=== PATIENT | female | born 1970 | race Two or more races ===

== ENCOUNTER 2021-02-15 16:23 | Inpatient (IN) | payer OTHER ==
[2021-02-15] MEDS ORDERED: HEPARIN SODIUM 1,000 UN/ML (10ML VL) IV ONE (16:29)
[2021-02-15] MEDS ORDERED: SODIUM CHLORIDE 0.9% 1,000 ML IV STA (16:29)
[2021-02-15] MEDS ORDERED: HEPARIN SOD,PORK IN 0.45% NACL 25,000 UNIT in 0.45% NACL 1 250ML.BAG IV SCH (16:30)
--- NOTE | 2021-02-15 16:49 | ED ---
Arrhythmia/Palpitations HPI - General Stated Complaint: afib Time Seen by Provider: 02/15/21 16:28 Source: patient, EMS Mode of arrival: EMS Limitations: no limitations - History of Present Illness Initial Comments: Destiny is a 50yo F who presents to our hospital as a transfer from [facility]. Patient presented there with complaints of weakness and palpitations. Patient was found to be in new onset A. fib with RVR. Patient had no chest pain. She was started on Cardizem and rate was well-controlled. Patient is not on any anticoagulant medication she does take daily aspirin. Patient was not started on heparin prior to arrival in the emergency department here. - Related Data Home Medications Medication Instructions Recorded Confirmed ALPRAZolam [Xanax] 0.25 mg PO BID PRN 02/15/21 02/15/21 Adalimumab [Humira(Cf) Pen] 40 mg SQ Q14D 02/15/21 02/15/21 Aspirin EC [Ecotrin Low Dose] 81 mg PO DAILY 02/15/21 02/15/21 Cholecalciferol (Vitamin D3) 125 mcg PO DAILY 02/15/21 02/15/21 [Vitamin D3 (125 MCG = 5,000 IU)] DULoxetine HCL [Cymbalta] 30 mg PO HS 02/15/21 02/15/21 Gabapentin 600 mg PO HS 02/15/21 02/15/21 Lisinopril-Hctz 20-12.5 mg 1 tab PO DAILY 02/15/21 02/15/21 [Zestoretic 20-12.5] Mv-Min/Folic/Vit K/Lut/[id number] 1 tab PO DAILY 02/15/21 02/15/21 [Alive Women's 50 Plus Tablet] predniSONE 5 mg PO DAILY 02/15/21 02/15/21 Allergies Allergy/AdvReac Type Severity Reaction Status Date / Time No Known Allergies Allergy Verified 02/15/21 17:54 Review of Systems ROS Statement: Those systems with pertinent positive or pertinent negative responses have been documented in the HPI. ROS Other: All systems not noted in ROS Statement are negative. Past Medical History Past Medical History: Atrial Fibrillation, Hypertension, Rheumatoid Arthritis (RA) History of Any Multi-Drug Resistant Organisms: None Reported Past Surgical History: Appendectomy, Bowel Resection, Tonsillectomy Additional Past Surgical History / Comment(s): left breast cyst Past Psychological History: No Psychological Hx Reported Smoking Status: Current every day smoker Past Alcohol Use History: Occasional Past Drug Use History: None Reported - Past Family History Father Family Medical History: Unable to Obtain Mother Family Medical History: Diabetes Mellitus General Exam - General Exam Comments Initial Comments: Physical Exam GENERAL: Patient is well-developed and well-nourished. Patient is nontoxic and well-hydrated and is in no distress. HENT: Normocephalic, Atraumatic. EYES: PERRL, EOMI PULMONARY: Unlabored respirations. CARDIOVASCULAR: Irregularly irregular ABDOMEN: Non-distended SKIN: No rashes or bruising : Deferred NEUROLOGIC: Alert and oriented Normal speech Normal gait MUSCULOSKELETAL: Moving all extremities with no apparent injury PSYCHIATRIC: No SI/HI Limitations: no limitations Course Vital Signs 02/15/21 02/15/21 02/15/21 16:25 18:15 18:25 Temperature 97.9 F 98.2 F Pulse Rate 103 H 112 H Pulse Rate [ [address] Pressman ] Respiratory 18 18 18 Rate Blood Pressure 131/70 113/100 Blood Pressure 102/73 [Left Arm] O2 Sat by Pulse 96 93 L 93 L Oximetry EKG Findings - EKG Comments: EKG Findings:: EKG was obtained due to tachycardia, EKG was obtained at 1639 rate is 97 rhythm is narrow complex irregularly irregular with no P waves before QRS this is consistent with an atrial fibrillation. There are no acute ST elevations or depressions there is no evidence of ischemia or infarction. Medical Decision Making - Medical Decision Making The patient was seen and evaluated [facility]'s medical record was reviewed History is obtained from the patient, patient has no contraindications to anticoagulation therefore heparin was ordered Cardizem was continued at a rate of 10, Cardizem was held briefly when the patient arrived she did ambulate to the restroom and her heart rate increased to the 140s. Upon resuming the Cardizem heart rate stabilized in the 90s. Patient care was discussed with who accepts the admission - Lab Data Result diagrams: 02/15/21 16:48 02/15/21 16:48 Lab Results 02/15/21 02/15/21 02/15/21 Range/Units 16:48 16:48 16:48 WBC 8.1 (3.8-10.6) k/uL RBC 4.10 (3.80-5.40) m/uL Hgb 13.4 (11.4-16.0) gm/dL Hct 39.5 (34.0-46.0) % MCV 96.2 (80.0-100.0) fL MCH 32.7 (25.0-35.0) pg MCHC 34.0 (31.0-37.0) g/dL RDW 13.9 (11.5-15.5) % Plt Count 242 (150-450) k/uL MPV 7.7 Neutrophils % 62 % Lymphocytes % 22 % Monocytes % 8 % Eosinophils % 4 % Basophils % 1 % Neutrophils # 5.0 (1.3-7.7) k/uL Lymphocytes # 1.8 (1.0-4.8) k/uL Monocytes # 0.7 (0-1.0) k/uL Eosinophils # 0.3 (0-0.7) k/uL Basophils # 0.1 (0-0.2) k/uL PT 10.7 (9.0-12.0) sec INR 1.0 (<1.2) APTT 22.5 (22.0-30.0) sec Sodium 134 L (137-145) mmol/L Potassium 4.2 (3.5-5.1) mmol/L Chloride 103 (98-107) mmol/L Carbon Dioxide 20 L (22-30) mmol/L Anion Gap 11 mmol/L BUN 9 (7-17) mg/dL Creatinine 0.67 (0.52-1.04) mg/dL Est GFR (CKD-EPI)AfAm >90 (>60 ml/min/1.73 sqM) Est GFR (CKD-EPI)NonAf >90 (>60 ml/min/1.73 sqM) Glucose 119 H (74-99) mg/dL Calcium 8.2 L (8.4-10.2) mg/dL Magnesium 1.6 (1.6-2.3) mg/dL Total Bilirubin 0.3 (0.2-1.3) mg/dL AST 50 H (14-36) U/L ALT 45 H (4-34) U/L Alkaline Phosphatase 72 (38-126) U/L Troponin I (0.000-0.034) ng/mL NT-Pro-B Natriuret Pep pg/mL Total Protein 6.5 (6.3-8.2) g/dL Albumin 3.2 L (3.5-5.0) g/dL 02/15/21 02/15/21 Range/Units 16:48 16:48 WBC (3.8-10.6) k/uL RBC (3.80-5.40) m/uL Hgb (11.4-16.0) gm/dL Hct (34.0-46.0) % MCV (80.0-100.0) fL MCH (25.0-35.0) pg MCHC (31.0-37.0) g/dL RDW (11.5-15.5) % Plt Count (150-450) k/uL MPV Neutrophils % % Lymphocytes % % Monocytes % % Eosinophils % % Basophils % % Neutrophils # (1.3-7.7) k/uL Lymphocytes # (1.0-4.8) k/uL Monocytes # (0-1.0) k/uL Eosinophils # (0-0.7) k/uL Basophils # (0-0.2) k/uL PT (9.0-12.0) sec INR (<1.2) APTT (22.0-30.0) sec Sodium (137-145) mmol/L Potassium (3.5-5.1) mmol/L Chloride (98-107) mmol/L Carbon Dioxide (22-30) mmol/L Anion Gap mmol/L BUN (7-17) mg/dL Creatinine (0.52-1.04) mg/dL Est GFR (CKD-EPI)AfAm (>60 ml/min/1.73 sqM) Est GFR (CKD-EPI)NonAf (>60 ml/min/1.73 sqM) Glucose (74-99) mg/dL Calcium (8.4-10.2) mg/dL Magnesium (1.6-2.3) mg/dL Total Bilirubin (0.2-1.3) mg/dL AST (14-36) U/L ALT (4-34) U/L Alkaline Phosphatase (38-126) U/L Troponin I <0.012 (0.000-0.034) ng/mL NT-Pro-B Natriuret Pep 361 pg/mL Total Protein (6.3-8.2) g/dL Albumin (3.5-5.0) g/dL Disposition Clinical Impression: New onset a-fib Disposition: ADMITTED IP TO THIS HOSP Condition: Stable Is patient prescribed a controlled substance at d/c from ED?: No
[2021-02-15 16:53] LABS: Basophils # (A) 0.1 k/uL (0-0.2); Basophils % (A) 1 %; Eosinophils # (A) 0.3 k/uL (0-0.7); Eosinophils % (A) 4 %; HCT 39.5 % (34.0-46.0); HGB 13.4 gm/dL (11.4-16.0); Lymphocytes # (A) 1.8 k/uL (1.0-4.8); Lymphocytes % (A) 22 %; MCH 32.7 pg (25.0-35.0); MCV 96.2 fL (80.0-100.0); Mean Platelet Volume 7.7; Monocytes # (A) 0.7 k/uL (0-1.0); Monocytes % (A) 8 %; Neutrophils % (A) 62 %; Platelet Count 242 k/uL (150-450); RDW 13.9 % (11.5-15.5); WBC 8.1 k/uL (3.8-10.6)
[2021-02-15 17:02] LABS: ALT 45 U/L (4-34); AST 50 U/L (14-36); African American GFR (CKD) >90 (>60 ml/min/1.73 sqM); Albumin 3.2 g/dL (3.5-5.0); Alkaline Phosphatase 72 U/L (38-126); Anion Gap 11 mmol/L; Blood Urea Nitrogen 9 mg/dL (7-17); Calcium 8.2 mg/dL (8.4-10.2); Carbon Dioxide 20 mmol/L (22-30); Chloride 103 mmol/L (98-107); Glucose 119 mg/dL (74-99); Magnesium 1.6 mg/dL (1.6-2.3); Non-African American GFR(CKD) >90 (>60 ml/min/1.73 sqM); Partial Thromboplastin Time 22.5 sec (22.0-30.0); Potassium 4.2 mmol/L (3.5-5.1); Prothrombin Time 10.7 sec (9.0-12.0); Sodium 134 mmol/L (137-145); Total Bilirubin 0.3 mg/dL (0.2-1.3); Total Protein 6.5 g/dL (6.3-8.2)
[2021-02-15] MEDS ORDERED: NITROGLYCERIN SL TABS 0.4 MG TAB SUBLINGUAL PRN (17:21)
[2021-02-15] MEDS: DILTIAZEM 125 MG in SODIUM CHLORIDE 0.9% 100 ML IV SCH (17:58)
[2021-02-15] MEDS ORDERED: NALOXONE 0.4 MG/ML 1 ML VIAL IV PRN (18:14)
[2021-02-15] MEDS ORDERED: ALPRAZolam 0.25 MG TAB PO PRN (18:14)
--- NOTE | 2021-02-15 18:32 | P.HPIM ---
History of Present Illness H&P Date: 02/15/21 Chief Complaint: Suzien 50-year-old woman with medical history of hypertension, hyperlipidemia, diabetes with diabetic nephropathy, anxiety, rheumatoid arthritis presented with palpitations. Patient says that she was in her usual state of health until yesterday when she did a lot of walking in the heat, exerting herself. However, she started to notice palpitations and the feeling of being unsettled. When she got home, she tried to take some Xanax to calm herself down, however, her heart rate still remained elevated and she still had palpitations, warranting her presentation to the emergency room. She was in [facility] where she was noted to be in atrial fibrillation with RVR which is new for her, and was provided Cardizem to bring her rates down, then transferred here for further management. Patient currently reports palpitations, anxiety. She denies fevers, chills, nausea, vomiting, chest pain, syncope, presyncope, cough, dyspnea, abdominal pain, gas patient, diarrhea, dysuria, dyschezia, numbness/weakness of extremity. In the ER, her heart rate ranges from 110-130, blood pressures are stable, 93% on 4 L nasal cannula. CBC was unremarkable. Chemistries show mild acidosis to bicarb of 20, elevated glucose to 119, mildly elevated LFTs, negative BNP, negative troponin. Chest x-ray is pending. Review of Systems All Systems reviewed and pertinent positives and negatives noted in HPI, all other symptoms are negative Past Medical History Past Medical History: Atrial Fibrillation, Hypertension, Rheumatoid Arthritis (RA) History of Any Multi-Drug Resistant Organisms: None Reported Past Surgical History: Appendectomy, Bowel Resection, Tonsillectomy Additional Past Surgical History / Comment(s): left breast cyst Past Psychological History: No Psychological Hx Reported Smoking Status: Current every day smoker Past Alcohol Use History: Occasional Past Drug Use History: None Reported Medications and Allergies Home Medications Medication Instructions Recorded Confirmed Type ALPRAZolam [Xanax] 0.25 mg PO BID PRN 02/15/21 02/15/21 History Adalimumab [Humira(Cf) Pen] 40 mg SQ Q14D 02/15/21 02/15/21 History Aspirin EC [Ecotrin Low Dose] 81 mg PO DAILY 02/15/21 02/15/21 History Cholecalciferol (Vitamin D3) 125 mcg PO DAILY 02/15/21 02/15/21 History [Vitamin D3 (125 MCG = 5,000 IU)] DULoxetine HCL [Cymbalta] 30 mg PO HS 02/15/21 02/15/21 History Gabapentin 600 mg PO HS 02/15/21 02/15/21 History Lisinopril-Hctz 20-12.5 mg 1 tab PO DAILY 02/15/21 02/15/21 History [Zestoretic 20-12.5] Mv-Min/Folic/Vit K/Lut/[id number] 1 tab PO DAILY 02/15/21 02/15/21 History [Alive Women's 50 Plus Tablet] predniSONE 5 mg PO DAILY 02/15/21 02/15/21 History Allergies Allergy/AdvReac Type Severity Reaction Status Date / Time No Known Allergies Allergy Verified 02/15/21 17:54 Physical Exam Osteopathic Statement: *. No significant issues noted on an osteopathic structural exam other than those noted in the History and Physical/Consult. Vitals: Vital Signs Temp Pulse Resp BP Pulse Ox 02/15/21 18:15 112 H 18 113/100 93 L 02/15/21 16:25 97.9 F 103 H 18 131/70 96 Intake and Output 02/15/21 02/15/21 02/15/21 06:59 14:59 22:59 Other: Weight 122.47 kg Gen: awake, alert HEENT: normocephalic, atraumatic, good hearing acuity, moist mucous membranes Resp: good air exchange, breathing comfortably with no accessory muscle use, right lower lobe crackles, mild left lower lobe crackles CVS: good distal perfusion x 4, irregular rhythm, tachycardic, no murmurs GI: soft, NTTP, ND : no SPT, no CVAT, mcguire catheter not present MSK: no pitting edema, no clubbing Neuro: non-focal, moving all extremities Psych: cooperative, euthymic mood Results CBC & Chem 7: 02/15/21 16:48 02/15/21 16:48 Labs: Abnormal Lab Results - Last 24 Hours (Table) 02/15/21 Range/Units 16:48 Sodium 134 L (137-145) mmol/L Carbon Dioxide 20 L (22-30) mmol/L Glucose 119 H (74-99) mg/dL Calcium 8.2 L (8.4-10.2) mg/dL AST 50 H (14-36) U/L ALT 45 H (4-34) U/L Albumin 3.2 L (3.5-5.0) g/dL Assessment and Plan Assessment: Acute hypoxemic respiratory failure Paroxysmal atrial fibrillation with rapid ventricular response, new onset, CHADS-VASc score is 3 -Admit inpatient, telemetry -Oxygen when necessary -Cardiology consult -Echocardiogram pending -Chest x-ray pending -Cardizem drip -Metoprolol 25 twice a day -Heparin drip Hypertension Hyperlipidemia Diabetes type 2 Anxiety Rheumatoid arthritis -Home medications reviewed and reconciled -Home diabetes medications by mouth or held, low-dose sliding scale insulin -Continue Xanax -Continue lisinoprilHCTZ -Continue duloxetine, gabapentin Patient is a full code Patient is on therapeutic anticoagulation
[2021-02-15] MEDS: MAGNESIUM SULFATE-D5W PMX 1 GM in DEXTROSE/WATER 1 100ML.BAG IVPB SCH ×2 (19:14→20:44)
--- NOTE | 2021-02-15 19:27 | XR ---
EXAMINATION TYPE: XR chest 1V portable DATE OF EXAM: 02/15/2021 COMPARISON: NONE HISTORY: Atrial fibrillation. Hypoxemia. TECHNIQUE: Single view FINDINGS: Heart is normal. Lungs are clear of consolidation. There is no heart failure. There is coar se interstitial density in the lungs. There is no pleural effusion. Bony thorax is intact. IMPRESSION: Interstitial pulmonary infiltrates. This could be interstitial fibrosis or interstitial p neumonia.
[2021-02-15] MEDS: DULoxetine HCL 30 MG CAPSULE.DR PO SCH (20:43)
[2021-02-15] MEDS: GABAPENTIN 300 MG CAP PO SCH (20:43)
[2021-02-15] MEDS: METOPROLOL TARTRATE 25 MG TAB PO SCH (20:44)
[2021-02-15] MEDS ORDERED: LORazepam 2 MG/ML INJ IV PRN ×3 (21:50)
--- NOTE | 2021-02-15 22:15 | US ---
EXAMINATION TYPE: US venous doppler duplex LE BI DATE OF EXAM: 02/15/2021 9:37 PM COMPARISON: NONE CLINICAL HISTORY: complaint of calf pain. SIDE PERFORMED: Bilateral TECHNIQUE: The lower extremity deep venous system is examined utilizing real time linear array sonog gudelia with graded compression, doppler sonography and color-flow sonography. VESSELS IMAGED: Common Femoral Vein Deep Femoral Vein Greater Saphenous Vein * Femoral Vein Popliteal Vein Small Saphenous Vein * Proximal Calf Veins (* superficial vessels) Right Leg: Negative for DVT Left Leg: Negative for DVT IMPRESSION: No evidence of deep vein thrombosis in both legs.
[2021-02-16] MEDS ORDERED: HEPARIN SODIUM 1,000 UN/ML (10ML VL) IV PRN (00:11)
[2021-02-16] MEDS: DILTIAZEM 125 MG in SODIUM CHLORIDE 0.9% 100 ML IV SCH (02:56)
[2021-02-16] MEDS: ACETAMINOPHEN TAB 325 MG TAB PO PRN ×3 (02:58→23:00)
[2021-02-16 05:21] LABS: Glucose,Whole Blood 151 mg/dL (75-99)
[2021-02-16 06:09] LABS: Glucose,Whole Blood 142 mg/dL (75-99)
[2021-02-16] MEDS: INSULIN ASPART (NovoLOG) 100 UNIT/ML VIAL SQ SCH ×3 (06:29→16:58)
[2021-02-16 06:51] LABS: Basophils # (A) 0.1 k/uL (0-0.2); Basophils % (A) 1 %; Eosinophils # (A) 0.4 k/uL (0-0.7); Eosinophils % (A) 4 %; HCT 38.3 % (34.0-46.0); HGB 12.4 gm/dL (11.4-16.0); Lymphocytes # (A) 1.8 k/uL (1.0-4.8); Lymphocytes % (A) 20 %; MCH 32.4 pg (25.0-35.0); MCHC 32.5 g/dL (31.0-37.0); MCV 99.9 fL (80.0-100.0); Macrocytosis Slight; Mean Platelet Volume 8.2; Monocytes # (A) 0.6 k/uL (0-1.0); Monocytes % (A) 7 %; Neutrophils # (A) 5.8 k/uL (1.3-7.7); Neutrophils % (A) 65 %; Platelet Count 215 k/uL (150-450); RBC 3.83 m/uL (3.80-5.40); RDW 14.4 % (11.5-15.5); WBC 8.9 k/uL (3.8-10.6)
[2021-02-16 07:11] LABS: African American GFR (CKD) >90 (>60 ml/min/1.73 sqM); Anion Gap 7 mmol/L; Blood Urea Nitrogen 9 mg/dL (7-17); Calcium 8.7 mg/dL (8.4-10.2); Carbon Dioxide 26 mmol/L (22-30); Chloride 102 mmol/L (98-107); Glucose 145 mg/dL (74-99); Non-African American GFR(CKD) 89 (>60 ml/min/1.73 sqM); Potassium 4.8 mmol/L (3.5-5.1); Sodium 135 mmol/L (137-145)
--- NOTE | 2021-02-16 07:59 | P.CRDCN ---
History of Present Illness Consult date: 02/16/21 History of present illness: HISTORY OF PRESENT ILLNESS: This is a 50-year-old female with a past medical history significant for hypertension, nicotine dependence, and frequent alcohol use. Patient does not follow with a gas dispenser. We have been asked to see the patient in consultation for A. fib with RVR. Patient examined at the bedside. Patient states yesterday she was sleeping when she was awoken from her sleep with left shoulder pain and shortness of breath. She denied having any chest pain or pressure. She denied having any palpitations. She states that she overall was not feeling well so she called her neighbor who is a registered nurse who came over and advised the patient to go to the emergency room for further evaluation. The patient initially presented to [facility] and was found to be in A. fib with RVR. The patient denies any previous history of atrial fibrillation. The patient was started on a Cardizem drip there and subsequently converted to sinus mechanism. Patient remains in sinus rhythm this morning at the time of examination. She denies chest pain or pressure. She denies shortness of breath. She does report feeling slightly diaphoretic this morning and has a headache. Patient reports she is a daily smoker and smokes approximately 8 cigarettes a day. She also reports alcohol use 4-5 times a week with 4-5 vodka and cranberry drinks each time. She denies any illicit drug use. She denies having a stress test or cardiac catheterization in the past. EKG reveals A. fib with RVR Chest xray interstitial pulmonary infiltrates. This could be interstitial fibrosis or interstitial pneumonia. Lower extremity Doppler: Negative for DVT Laboratory data: WBC 8.9. Hemoglobin 12.4. Platelet count 215. Sodium 135. Potassium 4.8. BUN 9. Creatinine 0.77. Troponin negative 1. ProBNP 361. Current home cardiac medications include lisinoprilhydrochlorothiazide 2012.5 mg daily, aspirin 81 mg daily REVIEW OF SYSTEMS: At the time of my exam: CONSTITUTIONAL: Denies fever or chills. HEENT: Denies blurred vision, vision changes, or eye pain. Denies hemoptysis CARDIOVASCULAR: Denies chest pain. Denies orthopnea. Denies PND. Denies palpitations RESPIRATORY: Denies shortness of breath. GASTROINTESTINAL: Denies abdominal pain. Denies nausea or vomiting. HEMATOLOGIC: Denies bleeding disorders. GENITOURINARY: Denies any blood in urine. SKIN: Denies pruitis. Denies rash. PHYSICAL EXAM: VITAL SIGNS: Reviewed. GENERAL: Well-developed in no acute distress. HEENT: Head is normocephalic. Pupils are equal, round. Sclerae anicteric. Mucous membranes of the mouth are moist. Neck supple. No JVD or thyromegaly LUNGS: Respirations even and unlabored. Lungs essentially clear to auscultation bilaterally. HEART: Regular rate and rhythm. S1 and S2 heard. ABDOMEN: Soft. Nondistended. Nontender. EXTREMITIES: Normal range of motion. No clubbing or cyanosis. Peripheral pulses intact. No lower extremity edema NEUROLOGIC: Awake and alert. Oriented x 3. ASSESSMENT: New onset paroxysmal atrial fibrillation with RVR Hypertension Nicotine dependence Frequent alcohol use Morbid obesity: BMI 44.5 Anxiety PLAN: Obtain 2D echo to assess cardiac structure and function Continue home cardiac medications Continue metoprolol Continue IV heparin Case management consulted to verify insurance coverage for [employer] Check TSH Likely outpatient stress test Smoking cessation encouraged Abstinence from alcohol recommended Further recommendations pending patient course Nurse practitioner note has been reviewed by physician. Signing provider agrees with the documented findings, assessment, and plan of care. Past Medical History Past Medical History: Atrial Fibrillation, Hypertension, Rheumatoid Arthritis (RA) Additional Past Medical History / Comment(s): diverticulitis History of Any Multi-Drug Resistant Organisms: None Reported Past Surgical History: Appendectomy, Bowel Resection, Tonsillectomy Additional Past Surgical History / Comment(s): left breast cyst Past Anesthesia/Blood Transfusion Reactions: No Reported Reaction Past Psychological History: No Psychological Hx Reported Smoking Status: Current every day smoker Past Alcohol Use History: Occasional Past Drug Use History: None Reported - Past Family History Father Family Medical History: Unable to Obtain Mother Family Medical History: Diabetes Mellitus Medications and Allergies Home Medications Medication Instructions Recorded Confirmed Type ALPRAZolam [Xanax] 0.25 mg PO BID PRN 02/15/21 02/15/21 History Adalimumab [Humira(Cf) Pen] 40 mg SQ Q14D 02/15/21 02/15/21 History Aspirin EC [Ecotrin Low Dose] 81 mg PO DAILY 02/15/21 02/15/21 History Cholecalciferol (Vitamin D3) 125 mcg PO DAILY 02/15/21 02/15/21 History [Vitamin D3 (125 MCG = 5,000 IU)] DULoxetine HCL [Cymbalta] 30 mg PO HS 02/15/21 02/15/21 History Gabapentin 600 mg PO HS 02/15/21 02/15/21 History Lisinopril-Hctz 20-12.5 mg 1 tab PO DAILY 02/15/21 02/15/21 History [Zestoretic 20-12.5] Mv-Min/Folic/Vit K/Lut/[id number] 1 tab PO DAILY 02/15/21 02/15/21 History [Alive Women's 50 Plus Tablet] predniSONE 5 mg PO DAILY 02/15/21 02/15/21 History Allergies Allergy/AdvReac Type Severity Reaction Status Date / Time No Known Allergies Allergy Verified 02/15/21 17:54 Physical Exam Vitals: Vital Signs Temp Pulse Pulse Resp BP BP Pulse Ox 02/16/21 03:12 98.3 F 84 18 161/81 92 L 02/16/21 02:00 78 18 02/16/21 00:00 97.3 F L 78 18 114/64 93 L 02/15/21 20:00 97.8 F 72 18 116/60 92 L 02/15/21 18:25 98.2 F 78 18 102/73 93 L 02/15/21 18:15 112 H 18 113/100 93 L 02/15/21 16:25 97.9 F 103 H 18 131/70 96 Intake and Output 02/15/21 02/16/21 02/16/21 22:59 06:59 14:59 Intake Total 28.167 75.788 Balance 28.167 75.788 Intake: Intake, IV Titration 28.167 75.788 Amount Diltiazem 125 mg In 28.167 Sodium Chloride 0.9% 100 ml @ 10 MG/HR 10 mls/hr IV .[id number] TRISHA Rx#: [id number] Heparin Sod,Pork in 0.45% 75.788 NaCl 25,000 unit In 0.45 % NaCl 1 250ml.bag @ 8.16 UNITS/KG/HR 9.994 mls/hr IV .Q24H TRISHA Rx#: [id number] Other: Voiding Method Toilet Toilet # Voids 1 Weight 122.47 kg 129 kg Results 02/16/21 06:15 02/16/21 06:15 Cardiac Enzymes 02/15/21 02/15/21 Range/Units 16:48 16:48 AST 50 H (14-36) U/L Troponin I <0.012 (0.000-0.034) ng/mL Coagulation 02/15/21 02/15/21 02/16/21 Range/Units 16:48 23:20 06:15 PT 10.7 (9.0-12.0) sec APTT 22.5 24.6 29.9 (22.0-30.0) sec CBC 02/15/21 02/16/21 Range/Units 16:48 06:15 WBC 8.1 8.9 (3.8-10.6) k/uL RBC 4.10 3.83 (3.80-5.40) m/uL Hgb 13.4 12.4 (11.4-16.0) gm/dL Hct 39.5 38.3 (34.0-46.0) % Plt Count 242 215 (150-450) k/uL Comprehensive Metabolic Panel 02/15/21 02/16/21 Range/Units 16:48 06:15 Sodium 134 L 135 L (137-145) mmol/L Potassium 4.2 4.8 (3.5-5.1) mmol/L Chloride 103 102 (98-107) mmol/L Carbon Dioxide 20 L 26 (22-30) mmol/L BUN 9 9 (7-17) mg/dL Creatinine 0.67 0.77 (0.52-1.04) mg/dL Glucose 119 H 145 H (74-99) mg/dL Calcium 8.2 L 8.7 (8.4-10.2) mg/dL AST 50 H (14-36) U/L ALT 45 H (4-34) U/L Alkaline Phosphatase 72 (38-126) U/L Total Protein 6.5 (6.3-8.2) g/dL Albumin 3.2 L (3.5-5.0) g/dL Current Medications Generic Name Dose Route Start Last Admin Trade Name Freq PRN Reason Stop Dose Admin Acetaminophen 650 mg 02/15/21 18:14 02/16/21 02:58 Acetaminophen Tab 325 Mg Tab PO 650 mg Q6HR PRN Administration Mild Pain or Fever > 100.5 Alprazolam 0.25 mg 02/15/21 18:14 Alprazolam 0.25 Mg Tab PO Q6HR PRN Anxiety Aspirin 81 mg 02/16/21 09:00 Aspirin 81 Mg PO DAILY [facility] Cholecalciferol 125 mcg 02/16/21 12:00 Cholecalciferol 25 Mcg (1000 Iu) Tablet PO DAILY@1200 TRISHA Duloxetine HCl 30 mg 02/15/21 21:00 02/15/21 20:43 Duloxetine Hcl 30 Mg Capsule.Dr PO 30 mg HS TRISHA Administration Gabapentin 600 mg 02/15/21 21:00 02/15/21 20:43 Gabapentin 300 Mg Cap PO 600 mg HS TRISHA Administration Lisinopril/HCTZ 1 each 02/16/21 09:00 Lisinopril-Hctz 20-12.5 Mg 1 Each Tab PO DAILY TRISHA Heparin Sodium (Porcine) 0 unit 02/16/21 00:11 02/16/21 00:39 Heparin Sodium 1,000 Un/Ml (10ml Vl) IV 6,123.5 unit PER PROTOCOL PRN Administration Low PTT Protocol Heparin Sodium/Sodium Chloride 250 mls @ 9.994 mls/hr 02/15/21 16:30 02/16/21 00:38 25,000 unit/ Sodium Chloride IV 11.16 units/kg/hr .Q24H TRISHA 13.668 mls/hr Titration Protocol 8.16 UNITS/KG/HR Diltiazem HCl 125 mg/ Sodium 125 mls @ 10 mls/hr 02/15/21 17:45 02/16/21 02:56 Chloride IV Not Given .[id number] TRISHA 10 MG/HR Insulin Aspart 0 unit 02/16/21 07:30 02/16/21 06:29 Insulin Aspart (Novolog) 100 Unit/Ml Vial SQ 2 unit AC-TID TRISHA Administration Protocol Lorazepam 1 mg 02/15/21 21:50 Lorazepam 2 Mg/Ml Inj IV Q2HR PRN CIWA 8 or 9 Lorazepam 1 mg 02/15/21 21:50 Lorazepam 2 Mg/Ml Inj IV Q1HR PRN CIWA 10 to 15 Lorazepam 2 mg 02/15/21 21:50 Lorazepam 2 Mg/Ml Inj IV 02/17/21 21:50 Q10M PRN CIWA 16 or higher Metoprolol Tartrate 25 mg 02/15/21 21:00 02/15/21 20:44 Metoprolol Tartrate 25 Mg Tab PO 25 mg BID [facility] Administration Multivitamins 1 each 02/16/21 12:00 Multivitamins, Thera 1 Each Tab PO DAILY@1200 [facility] Naloxone HCl 0.2 mg 02/15/21 18:14 Naloxone 0.4 Mg/Ml 1 Ml Vial IV Q2M PRN Opioid Reversal Nitroglycerin 0.4 mg 02/15/21 17:21 Nitroglycerin Sl Tabs 0.4 Mg Tab SUBLINGUAL Q5M PRN Chest Pain Prednisone 5 mg 02/16/21 09:00 Prednisone 5 Mg Tab PO DAILY [facility] Intake and Output 02/15/21 02/16/21 02/16/21 22:59 06:59 14:59 Intake Total 28.167 75.788 Balance 28.167 75.788 Intake: Intake, IV Titration .167 75.788 Amount Diltiazem 125 mg In 28.167 Sodium Chloride 0.9% 100 ml @ 10 MG/HR 10 mls/hr IV .[id number] [facility] Rx#: [id number] Heparin Sod,Pork in 0.45% 75.788 NaCl 25,000 unit In 0.45 % NaCl 1 250ml.bag @ 8.16 UNITS/KG/HR 9.994 mls/hr IV .Q24H [facility] Rx#: [id number] Other: Voiding Method Toilet Toilet # Voids 1 Weight 122.47 kg 129 kg 02/16/21 06:15 02/16/21 06:15
[2021-02-16 09:49] LABS: T4, Free (Free Thyroxine) 1.35 ng/dL (0.78-2.19)
[2021-02-16] MEDS: predniSONE 5 MG TAB PO SCH (10:29)
[2021-02-16] MEDS: ASPIRIN 81 MG PO SCH (10:29)
[2021-02-16] MEDS: METOPROLOL TARTRATE 25 MG TAB PO SCH ×2 (10:29→19:58)
[2021-02-16] MEDS: LISINOPRIL-HCTZ 20-12.5 MG 1 EACH TAB PO SCH (10:30)
[2021-02-16] MEDS: APIXABAN 5 MG TAB PO SCH ×2 (10:39→19:57)
--- NOTE | 2021-02-16 11:34 | P.PN ---
Subjective Progress Note Date: 02/16/21 Pt spontaneously converted to NSR yesterday. Cardiology consult following. Echo pending. Possible stress test. Ongoing IV heparin, CM working on eliquis approval. Objective - Vital Signs Vital signs: Vital Signs Temp 98.3 F 02/16/21 03:12 Pulse 84 02/16/21 03:12 Resp 18 02/16/21 03:12 BP 161/81 02/16/21 03:12 Pulse Ox 92 L 02/16/21 08:16 Intake & Output 02/15/21 02/16/21 02/16/21 18:59 06:59 18:59 Intake Total 103.955 240 Balance 103.955 240 Weight 122.47 kg 129 kg Intake: Intake, IV Titration 103.955 Amount Diltiazem 125 mg In 28.167 Sodium Chloride 0.9% 100 ml @ 10 MG/HR 10 mls/hr IV .[id number] TRISHA Rx#: [id number] Heparin Sod,Pork in 0.45% 75.788 NaCl 25,000 unit In 0.45 % NaCl 1 250ml.bag @ 8.16 UNITS/KG/HR 9.994 mls/hr IV .Q24H TRISHA Rx#: [id number] Oral 240 Other: Voiding Method Toilet # Voids 1 - Exam Gen: awake, alert HEENT: normocephalic, atraumatic, good hearing acuity, moist mucous membranes Resp: good air exchange, breathing comfortably with no accessory muscle use, right lower lobe crackles, mild left lower lobe crackles CVS: good distal perfusion x 4, irregular rhythm, tachycardic, no murmurs GI: soft, NTTP, ND : no SPT, no CVAT, mcguire catheter not present MSK: no pitting edema, no clubbing Neuro: non-focal, moving all extremities Psych: cooperative, euthymic mood - Labs CBC & Chem 7: 02/16/21 06:15 02/16/21 06:15 Labs: Abnormal Lab Results - Last 24 Hours (Table) 02/15/21 02/16/21 02/16/21 Range/Units 16:48 05:15 06:07 Sodium 134 L (137-145) mmol/L Carbon Dioxide 20 L (22-30) mmol/L Glucose 119 H (74-99) mg/dL POC Glucose (mg/dL) 151 H 142 H (75-99) mg/dL Calcium 8.2 L (8.4-10.2) mg/dL AST 50 H (14-36) U/L ALT 45 H (4-34) U/L Albumin 3.2 L (3.5-5.0) g/dL TSH (0.465-4.680) mIU/L 02/16/21 02/16/21 Range/Units 06:15 06:15 Sodium 135 L (137-145) mmol/L Carbon Dioxide (22-30) mmol/L Glucose 145 H (74-99) mg/dL POC Glucose (mg/dL) (75-99) mg/dL Calcium (8.4-10.2) mg/dL AST (14-36) U/L ALT (4-34) U/L Albumin (3.5-5.0) g/dL TSH 0.339 L (0.465-4.680) mIU/L Assessment and Plan Assessment: Acute hypoxemic respiratory failure Paroxysmal atrial fibrillation with rapid ventricular response, new onset, CHADS-VASc score is 3 -Admit inpatient, telemetry -Oxygen when necessary -Cardiology consult -Echocardiogram pending -Chest x-ray with reticular opacities c/w volume overload -lasix 20mg IV daily -Cardizem drip d/c'd 02/16 -Metoprolol 25 twice a day -Heparin drip Hypertension Hyperlipidemia Diabetes type 2 Anxiety Rheumatoid arthritis -Home medications reviewed and reconciled -Home diabetes medications by mouth or held, low-dose sliding scale insulin -Continue Xanax -Continue lisinoprilHCTZ -Continue duloxetine, gabapentin Patient is a full code Patient is on therapeutic anticoagulation
[2021-02-16 12:12] LABS: Glucose,Whole Blood 148 mg/dL (75-99)
[2021-02-16 12:32] LABS: Chol/HDL Ratio 4.81; Cholesterol 154 mg/dL (0-200); LDL Cholesterol,Calculated 83.6 mg/dL (0.0-131.0)
[2021-02-16] MEDS: FUROSEMIDE 10 MG/ML 2 ML VIAL IV SCH (12:41)
[2021-02-16] MEDS: CHOLECALCIFEROL 25 MCG (1000 IU) TABLET PO SCH (12:41)
[2021-02-16] MEDS: MULTIVITAMINS, THERA 1 EACH TAB PO SCH (12:41)
[2021-02-16 13:48] LABS: Hemoglobin A1C 6.3 % (4.0-6.0)
[2021-02-16 16:49] LABS: Glucose,Whole Blood 148 mg/dL (75-99)
[2021-02-16] MEDS: DULoxetine HCL 30 MG CAPSULE.DR PO SCH (19:58)
[2021-02-16] MEDS: GABAPENTIN 300 MG CAP PO SCH (19:58)
[2021-02-16 20:32] LABS: Glucose,Whole Blood 172 mg/dL (75-99)
--- NOTE | 2021-02-16 21:08 | ECHOF ---
Referral Reason:new onset afib MEASUREMENTS -------- HEIGHT: 170.2 cm WEIGHT: 128.8 kg BP: IVSd: 1.7 cm (0.6 - 1.1) LVIDd: 4.7 cm (3.9 - 5.3) LVPWd: 1.6 cm (0.6 - 1.1) EDV(Teich): 103 ml IVSs: 2.3 cm LVIDs: 2.1 cm LVPWs: 2.3 cm %IVS Thck: 37 % ESV(Teich): 14 ml EF(Teich): 86 % %FS: 56 % SV(Teich): 89 ml RVIDd: 3.5 cm (< 3.3) IVC: 19.48 mm LALs A4C: 5.4 cm LAAs A4C: 18.2 cm LAESV A-L A4C: 52 ml LAESV MOD A4C: 50 ml Ao Diam: 3.9 cm (2.0 - 3.7) LA Diam: 2.9 cm (2.7 - 3.8) AV Cusp: 2.2 cm (1.5 - 2.6) EPSS: 0.4 cm MV E Cole: 0.90 m/s MV DecT: 245 ms MV Dec [place]: 3.7 m/s MV A Cole: 0.58 m/s MV E/A Ratio: 1.54 MV PHT: 71 ms MR Vmax: 1.33 m/s MR maxP.04 mmHg AV Vmax: 1.34 m/s AV maxP.14 mmHg TR Vmax: 1.41 m/s TR maxP.99 mmHg RAP: 5.00 mmHg RVSP: 12.99 mmHg MV EF SLOPE: 120.90 mm/s (70 - 150) MV EXCURSION: 16.40 mm (> 18.000) FINDINGS -------- This was a technically good study. The left ventricular size is normal. There is moderate concentric left ventricular hypertrophy. O verall left ventricular systolic function is normal with, an EF between 55 - 60 %. The right ventricle is mildly enlarged. The left atrial size is normal. The right atrial size is normal. The aortic valve is trileaflet and appears structurally normal. The mitral valve is normal. There is trace mitral regurgitation. The tricuspid valve appears structurally normal. Trace tricuspid regurgitation present. Right maria g tricular systolic pressure is normal at < 35 mmHg. There is no pulmonic regurgitation present. The aortic root size is normal. Normal inferior vena cava with normal inspiratory collapse consistent with estimated right atrial pre ssure of 5 mmHg. There is no pericardial effusion. CONCLUSIONS -------- 1. The left ventricular size is normal. 2. There is moderate concentric left ventricular hypertrophy. 3. Overall left ventricular systolic function is normal with, an EF between 55 - 60 %. 4. The right ventricle is mildly enlarged. 5. There is trace mitral regurgitation. 6. Trace tricuspid regurgitation present. 7. There is no pericardial effusion. SENIOR BENEFITS SPECIALIST: Amanda Lopez RDCS
[2021-02-17 03:54] VITALS: RESP 18
[2021-02-17 06:29] LABS: Glucose,Whole Blood 146 mg/dL (75-99)
[2021-02-17] MEDS: INSULIN ASPART (NovoLOG) 100 UNIT/ML VIAL SQ SCH ×2 (06:34→12:58)
[2021-02-17] MEDS: LISINOPRIL-HCTZ 20-12.5 MG 1 EACH TAB PO SCH (08:57)
[2021-02-17] MEDS: ASPIRIN 81 MG PO SCH (08:57)
[2021-02-17] MEDS: FUROSEMIDE 10 MG/ML 2 ML VIAL IV SCH (08:57)
[2021-02-17] MEDS: predniSONE 5 MG TAB PO SCH (08:57)
[2021-02-17] MEDS: METOPROLOL TARTRATE 25 MG TAB PO SCH (08:57)
[2021-02-17] MEDS: APIXABAN 5 MG TAB PO SCH (08:57)
[2021-02-17 10:47] VITALS: TEMP 97.1
--- NOTE | 2021-02-17 10:56 | P.PN ---
Subjective Progress Note Date: 02/17/21 HISTORY OF PRESENT ILLNESS: This is a 50-year-old female with a past medical history significant for hypertension, nicotine dependence, and frequent alcohol use. Patient does not follow with a circulation supervisor. We have been asked to see the patient in consultation for A. fib with RVR. Patient examined at the bedside. Patient states yesterday she was sleeping when she was awoken from her sleep with left shoulder pain and shortness of breath. She denied having any chest pain or pre ssure. She denied having any palpitations. She states that she overall was not feeling well so she called her neighbor who is a registered nurse who came over and advised the patient to go to the emergency room for further evaluation. The patient initially presented to [facility] and was found to be in A. fib with RVR. The patient denies any previous history of atrial fibrillation. The patient was started on a Cardizem drip there and subsequently converted to sinus mechanism. Patient remains in sinus rhythm this morning at the time of examination. She denies chest pain or pressure. She denies shortness of breath. She does report feeling slightly diaphoretic this morning and has a headache. Patient reports she is a daily smoker and smokes approximately 8 cigarettes a day. She also reports alcohol use 4-5 times a week with 4-5 vodka and cranberry drinks each time. She denies any illicit drug use. She denies having a stress test or cardiac catheterization in the past. EKG reveals A. fib with RVR Chest xray interstitial pulmonary infiltrates. This could be interstitial fibrosis or interstitial pneumonia. Lower extremity Doppler: Negative for DVT Laboratory data: WBC 8.9. Hemoglobin 12.4. Platelet count 215. Sodium 135. Potassium 4.8. BUN 9. Creatinine 0.77. Troponin negative 1. ProBNP 361. Current home cardiac medications include lisinoprilhydrochlorothiazide 2012.5 mg daily, aspirin 81 mg daily 02/17/2021 Patient examined this morning at the bedside. Patient denies chest pain or pressure. Denies shortness of breath. Telemetry reveals sinus mechanism. Echocardiogram completed revealed ejection fraction 55-60%. Trace mitral regurgitant. Trace tricuspid regurgitation. PHYSICAL EXAM: VITAL SIGNS: Reviewed. GENERAL: Well-developed in no acute distress. HEENT: Head is normocephalic. Pupils are equal, round. Sclerae anicteric. Mucous membranes of the mouth are moist. Neck supple. No JVD or thyromegaly LUNGS: Respirations even and unlabored. Lungs essentially clear to auscultation bilaterally. HEART: Regular rate and rhythm. S1 and S2 heard. ABDOMEN: Soft. Nondistended. Nontender. EXTREMITIES: Normal range of motion. No clubbing or cyanosis. Peripheral pulses intact. No lower extremity edema NEUROLOGIC: Awake and alert. Oriented x 3. ASSESSMENT: New onset paroxysmal atrial fibrillation with RVR Hypertension Nicotine dependence Frequent alcohol use Morbid obesity: BMI 44.5 Anxiety PLAN: Continue current cardiac medications Likely outpatient stress test Smoking cessation encouraged Abstinence from alcohol recommended Patient is stable for discharge home today from a cardiac standpoint Nurse practitioner note has been reviewed by physician. Signing provider agrees with the documented findings, assessment, and plan of care. Objective - Vital Signs Vital signs: Vital Signs Temp 97.1 F L 02/17/21 08:00 Pulse 72 02/17/21 08:00 Resp 18 02/17/21 03:51 BP 140/71 02/17/21 08:00 Pulse Ox 94 L 02/17/21 08:00 Intake & Output 02/16/21 02/17/21 02/17/21 18:59 06:59 18:59 Intake Total 660 240 Balance 660 240 Weight 129.5 kg Intake: Oral 660 240 Other: Voiding Method Toilet Toilet # Voids 1 1 - Labs CBC & Chem 7: 02/16/21 06:15 02/16/21 06:15 Labs: Abnormal Lab Results - Last 24 Hours (Table) 02/16/21 02/16/21 02/16/21 Range/Units 06:15 06:15 12:10 POC Glucose (mg/dL) 148 H (75-99) mg/dL Hemoglobin A1c 6.3 H (4.0-6.0) % Triglycerides 192.0 H (0.0-149.0) mg/dL HDL Cholesterol 32.0 L (40.0-60.0) mg/dL 02/16/21 02/16/21 02/17/21 Range/Units 16:47 20:30 06:28 POC Glucose (mg/dL) 148 H 172 H 146 H (75-99) mg/dL Hemoglobin A1c (4.0-6.0) % Triglycerides (0.0-149.0) mg/dL HDL Cholesterol (40.0-60.0) mg/dL
[2021-02-17 11:46] LABS: Glucose,Whole Blood 158 mg/dL (75-99)
[2021-02-17] MEDS: MULTIVITAMINS, THERA 1 EACH TAB PO SCH (12:58)
[2021-02-17] MEDS: CHOLECALCIFEROL 25 MCG (1000 IU) TABLET PO SCH (12:58)
[2021-02-17 13:32] VITALS: BP 131/68; PULSE 60
--- NOTE | 2021-02-17 19:15 | P.DS ---
Providers Date of admission: 02/15/21 17:21 Expected date of discharge: 02/17/21 Attending physician: Lolis Casey MD Consults: 02/15/21 17:21 Consult Physician Urgent Consulting Provider: [facility] Consult Reason/Comments: new onset afib Do you want consulting provider notified?: Yes Primary care physician: Heaven Campos, [facility] Hospital Course: Discharge Diagnosis: Newly discovered paroxysmal atrial fibrillation with rapid ventricular response Hypertension Dyslipidemia Diabetes mellitus type 2 Acute Hypoxic respiratory failure Anxiety Rheumatoid arthritis EtOH abuse Tobacco abuse Morbid obesity with BMI 44.7 Hospital Course: Patient is a 50-year-old female with a history of rheumatoid arthritis, diabetes with diabetic neuropathy, hypertension, dyslipidemia, and anxiety who presented with palpitations. Initially she was seen at [facility] where she was noted be in A. fib with RVR and she was started on Cardizem. She was transferred here for further cardiac evaluation. She was seen by cardiology. She underwent an echocardiogram which showed ejection fraction 55-60% with moderate concentric LVH. She underwent a lower extremity venous Doppler which was negative. She converted to normal sinus rhythm. Her Cardizem drip was discontinued and she was started on oral metoprolol. She has no insurance but has applied for Social Security disability. She was given a free one-month trial of Eliquis and will follow up for further recommendations. Follow-up with her primary care physician in 2-[address] Calhoun for cardiology in 2 weeks. She is aware that she will need to take medications as prescribed. Patient seen and examined at bedside. No chest pain, palpitations, nausea or vomiting. Had a long discussion about alcohol cessation and in current medication compliance. She will discuss with her primary about her anxiety. She will watch videos on A. fib through [facility] and the [employer]. Her sister is a registered nurse. Vital signs reviewed and stable. General: non toxic, no distress, appears at stated age, obese Derm: warm, dry Head: atraumatic, normocephalic, symmetric Eyes: EOMI, no lid lag, anicteric sclera Mouth: no lip lesion, mucus membranes moist Cardiovascular: S1S2 reg, no murmur, positive posterior tibial pulse bilateral, Lungs: CTA bilateral, no rhonchi, no rales , no accessory muscle use Abdominal: soft, nontender to palpation, no guarding, no appreciable organomegaly Ext: no gross muscle atrophy, no edema, no contractures Neuro: CN II-XI grossly intact, no focal neuro deficits Psych: Alert, oriented, appropriate affect A total of 35 minutes of time were spent preparing this complex discharge summary . Patient Condition at Discharge: Stable Plan - Discharge Summary Discharge Rx Participant: Yes New Discharge Prescriptions: New Metoprolol Tartrate [Lopressor] 25 mg PO BID #60 tab Apixaban [Eliquis] 5 mg PO BID #60 tab Continue DULoxetine HCL [Cymbalta] 30 mg PO HS Cholecalciferol (Vitamin D3) [Vitamin D3 (125 MCG = 5,000 IU)] 125 mcg PO DAILY Aspirin EC [Ecotrin Low Dose] 81 mg PO DAILY Adalimumab [Humira(Cf) Pen] 40 mg SQ Q14D Lisinopril-Hctz 20-12.5 mg [Zestoretic 20-12.5] 1 tab PO DAILY Gabapentin 600 mg PO HS ALPRAZolam [Xanax] 0.25 mg PO BID PRN PRN Reason: Anxiety predniSONE 5 mg PO DAILY Mv-Min/Folic/Vit K/Lut/[id number] [Alive Women's 50 Plus Tablet] 1 tab PO DAILY Discharge Medication List ALPRAZolam [Xanax] 0.25 mg PO BID PRN 02/15/21 [History] Adalimumab [Humira(Cf) Pen] 40 mg SQ Q14D 02/15/21 [History] Aspirin EC [Ecotrin Low Dose] 81 mg PO DAILY 02/15/21 [History] Cholecalciferol (Vitamin D3) [Vitamin D3 (125 MCG = 5,000 IU)] 125 mcg PO DAILY 02/15/21 [History] DULoxetine HCL [Cymbalta] 30 mg PO HS 02/15/21 [History] Gabapentin 600 mg PO HS 02/15/21 [History] Lisinopril-Hctz 20-12.5 mg [Zestoretic 20-12.5] 1 tab PO DAILY 02/15/21 [History] Mv-Min/Folic/Vit K/Lut/[id number] [Alive Women's 50 Plus Tablet] 1 tab PO DAILY 02/15/21 [History] predniSONE 5 mg PO DAILY 02/15/21 [History] Apixaban [Eliquis] 5 mg PO BID #60 tab 02/16/21 [Rx] Metoprolol Tartrate [Lopressor] 25 mg PO BID #60 tab 02/17/21 [Rx] Follow up Appointment(s)/Referral(s): [facility] - 02/19/21 10:30 am Ananda Coburn MD [STAFF PHYSICIAN] - 1 Week (Office will call you with appointment location, date and time) Patient Instructions/Handouts: A-fib (Atrial Fibrillation) (DC), How to Stop Smoking (DC), Heart Healthy Diet (DC), Basic Carbohydrate Counting (DC) Activity/Diet/Wound Care/Special Instructions: Activity: as tolerated Diet: heart healthy carb consistent Special Instructions: Abstain for Alcohol Discharge Disposition: HOME SELF-CARE
== END 2021-02-17 15:20 | disposition home or self-care (01) | DRG 308 ==
LOC: EC 16:23 → 3SCARD 17:21
PROVIDERS: ADMIT Internal Medicine; ATTEND Internal Medicine
DX: I48.0 Paroxysmal atrial fibrillation (principal); J96.01 Acute respiratory failure with hypoxia; Z68.41 Body mass index [BMI] 40.0-44.9, adult; E87.2 Acidosis; M06.9 Rheumatoid arthritis, unspecified; I10 Essential (primary) hypertension; F41.9 Anxiety disorder, unspecified; F10.10 Alcohol abuse, uncomplicated; Z71.41 Alcohol abuse counseling and surveillance of alcoholic; E78.5 Hyperlipidemia, unspecified; E11.21 Type 2 diabetes mellitus with diabetic nephropathy; E11.40 Type 2 diabetes mellitus with diabetic neuropathy, unspecified; E11.65 Type 2 diabetes mellitus with hyperglycemia; E66.01 Morbid (severe) obesity due to excess calories; E87.70 Fluid overload, unspecified; F17.210 Nicotine dependence, cigarettes, uncomplicated; Z79.82 Long term (current) use of aspirin; Z83.3 Family history of diabetes mellitus; Z90.89 Acquired absence of other organs; Z98.890 Other specified postprocedural states; Z90.49 Acquired absence of other specified parts of digestive tract
CPT/HCPCS: 36415; 71045; 80048; 80053; 80061; 83036; 83735; 83880; 84439; 84443; 84484; 85025; 85610; 85730; 93005; 93306; 93970; 96374; 99285

== ENCOUNTER 2024-07-13 06:16 | Day surgery (SDC) | payer OTHER ==
[2024-07-11 11:21] VITALS: BMI 39.1
[2024-07-13] MEDS ORDERED: LACTATED RINGERS 1,000 ML IV SCH ×2 (06:17)
[2024-07-13] MEDS: SODIUM CHLORIDE 0.9% 500 ML 500 ML IV ONE (07:13)
[2024-07-13 07:47] LABS: Glucose,Whole Blood 133 mg/dL (70-110)
[2024-07-13] MEDS ORDERED: PROPOFOL 10 MG/ML 20 ML VIAL IV ONE (07:53)
[2024-07-13] MEDS ORDERED: LIDOCAINE 2% (PF) 20 MG/ML 5 ML VIAL ONE (07:53)
[2024-07-13] MEDS: BENZOCAINE SPRAY 1 EACH MM ONE (07:58)
--- NOTE | 2024-07-13 08:07 | P.PCN ---
Date of Procedure: 07/13/24 Operative Findings: Cardioversion Report Performing physician Krishna Jensen M.D. Procedure performed Successful cardioversion of atrial fibrillation to normal sinus mechanism using 200 J at second attempt Indication Symptomatic atrial fibrillation Complication None Level of sedation The procedure was performed under deep sedation using propofol with EDUCATIONAL SPECIALIST in the room Procedure description After obtaining an informed consent the patient was brought to the recovery room. Sedation was introduced using propofol with EDUCATIONAL SPECIALIST in the room. Subsequently the patient cardioverted from atrial fibrillation to normal sinus mechanism using 200 J and first attempt Conclusion Successful cardioversion of atrial fibrillation to normal sinus mechanism using 200 J Postprocedure management Continue the current medical regimen Continue oral anticoagulation Follow-up with the patient
--- NOTE | 2024-07-13 08:08 | P.PCN ---
Date of Procedure: 07/13/24 Operative Findings: TRANSESOPHAGEAL ECHOCARDIOGRAM METER INSTALLER: VALERIA RAMOS MD, RPVI INDICATION: Rule out intracardiac thrombus before cardioversion SEDATION: Conscious sedation COMPLICATION: None LEVEL OF SEDATION The procedure was performed using propofol with SUPERVISOR ACCOUNTING CLERKS in the room PROCEDURE DESCRIPTION: After obtaining an informed consent, the patient was brought to transesophageal echocardiogram room. Pulse oximetry and heart monitors were attached to the patient. The patient throat was sprayed using lidocaine. The patient was turned into left lateral position. After that a bite guard was placed. After an appropriate conscious sedation was initiated, the transesophageal echocardiogram was advanced through a bite guard into the mid esophagus. A 2-D echocardiogram images, color Doppler images, continuous wave images, pulse-wave images, of various cardiac structure were performed. After that the transesophageal echocardiogram probe was advanced into the stomach and fixed to obtain transgastric view was. The probe was brought into the mid esophagus. Inter-atrial septum was interrogated using 2D images, color Doppler images, and then contrast study. After that transesophageal echocardiogram was withdrawn out and upon withdrawing the descending thoracic aorta all the way up to the arch was evaluated. CONCLUSION: 1. No evidence of intracardiac thrombus 2. Intact left atrial appendage 3. Intact interatrial septum 4. Mildly impaired LV function with an EF around 45% 5. Mild to moderate mitral and tricuspid regurgitation 6. Trileaflet aortic valve with no stenosis or regurgitation
[2024-07-13 08:13] VITALS: TEMP 97.2
[2024-07-13 08:20] LABS: African American GFR (CKD) >90 (>60 ml/min/1.73 sqM); Anion Gap 10 mmol/L; Blood Urea Nitrogen 10 mg/dL (7-17); Calcium 9.3 mg/dL (8.4-10.2); Carbon Dioxide 26 mmol/L (22-30); Chloride 98 mmol/L (98-107); Glucose 128 mg/dL (74-99); Non-African American GFR(CKD) >90 (>60 ml/min/1.73 sqM); Potassium 3.9 mmol/L (3.5-5.1); Sodium 134 mmol/L (137-145)
[2024-07-13 09:20] VITALS: BP 149/69; PULSE 77; RESP 16
== END 2024-07-13 09:37 | disposition home or self-care (01) ==
LOC: OR 06:16
PROVIDERS: ATTEND Internal Medicine Interventional Cardiology
DX: I08.1 Rheumatic disorders of both mitral and tricuspid valves (principal); I48.0 Paroxysmal atrial fibrillation; I10 Essential (primary) hypertension; F17.200 Nicotine dependence, unspecified, uncomplicated; Z79.899 Other long term (current) drug therapy
CPT/HCPCS: 93312; 93320; 93325; 92960; 80048; 99152; J2704; J2003

== ENCOUNTER 2024-11-01 09:00 | Day surgery (SDC) | payer OTHER ==
[2024-10-29 12:46] VITALS: BMI 39.1
[~2024-11-01 09:00] MED LIST: ALPRAZolam 0.25 MG TAB PO PRN; ALPRAZolam 0.5 MG TAB PO PRN; HEPARIN SODIUM,PORCINE (1 ML) 2,500 UNIT in SODIUM CHLORIDE 0.9% 250 ML IRRIGATION PRN; HEPARIN SODIUM,PORCINE 10,000 UNIT in SODIUM CHLORIDE 0.9% 1,000 ML IRRIGATION PRN; NITROGLYCERIN SL TABS 0.4 MG TAB SUBLINGUAL PRN
[2024-11-01 09:34] VITALS: TEMP 98.9
[2024-11-01] MEDS: ASPIRIN 325 MG TAB PO STA (09:42)
[2024-11-01] MEDS: SODIUM CHLORIDE 0.9% 1,000 ML in EMPTY BAG 1 BAG IV SCH (09:42)
[2024-11-01] MEDS: HEPARIN SODIUM,PORCINE (1 ML) 2,500 UNIT in SODIUM CHLORIDE 0.9% 250 ML IRRIGATION ONE (10:20)
[2024-11-01] MEDS: HEPARIN SODIUM,PORCINE 10,000 UNIT in SODIUM CHLORIDE 0.9% 1,000 ML IRRIGATION ONE (10:22)
[2024-11-01] MEDS: IV FLUID CONTINUATION 1,000 ML IV ONE (10:22)
[2024-11-01] MEDS: IV FLUID CONTINUATION 400 ML IV ONE (10:25)
[2024-11-01] MEDS: MIDAZOLAM 2 MG/2 ML VIAL IVP ONE (10:45)
[2024-11-01] MEDS: LIDOCAINE 1% INJ 10MG/ML (20 ML MDV) SQ ONE (10:50)
[2024-11-01] MEDS: fentaNYL (PF) 50 MCG/ML 2 ML AMP IVP ONE (10:51)
[2024-11-01] MEDS: VERAPAMIL SYRINGE (5 MG/10 ML) INTRAARTER ONE (10:51)
[2024-11-01] MEDS: HEPARIN SODIUM 1,000 UN/ML (10ML VL) IVP ONE (10:51)
[2024-11-01] MEDS: IOPAMIDOL-370 100ML BTL INJ ONE (10:56)
[2024-11-01] MEDS ORDERED: RX INFO: IV CONTRAST WAS GIVEN 1 EACH MISC MISCELLANE PRN (10:57)
[2024-11-01] MEDS ORDERED: SODIUM CHLORIDE 0.9% 1,000 ML IV SCH (11:00)
--- NOTE | 2024-11-01 11:01 | P.PCN ---
Date of Procedure: 11/01/24 Operative Findings: CARDIAC CATHETERIZATION PERFORMING PHYSICIAN: Krishna Jensen MD, RPVI PROCEDURE PERFORMED: 1. Selective right and left coronary angiogram 2. Left heart catheterization 3. Ultrasound-guided access of the right radial artery INDICATION: Symptomatic 54-year-old female COMPLICATION: None APPROACH: Right radial artery LEVEL OF SEDATION: Moderate with a sedation length of 8 minutes PROCEDURE DESCRIPTION: After obtaining an informed consent, the patient was brought to cardiac construction craft laborer. Local anesthesia was performed using lidocaine subcutaneously. The right radial artery was cannulated using Seldinger technique, under ultrasound guidance, the guidewire passed easily, following that we advanced a 5-Albanian sheath dilator assembly, the wire and dilator were removed and sheath was flushed. Following that, 2 mg of verapamil along with 5000 unit heparin were given. Selective right and left coronary angiogram using a 5-Albanian JR4 and JL 3.5 catheters. Following that we did left heart catheterization using 5-Albanian pigtail catheter. The procedure was completed there was no complication. SELECTIVE CORONARY ANGIOGRAM: The right coronary artery: Does not have any high-grade stenosis Left main: Is angiographically normal The left circumflex: Large caliber vessel and a dominant vessel with no evidence of high-grade stenosis The left anterior descending artery: Large caliber vessel also appears to be angiographically HEMODYNAMICS: The LVEDP was 5 mmHg with no significant gradient across aortic valve CONCLUSION: 1. Normal coronary angiogram 2. Normal left-sided filling pressure POSTPROCEDURE MANAGEMENT: Medical treatment
[2024-11-01 17:23] VITALS: RESP 16
[2024-11-01 17:36] VITALS: BP 153/71; PULSE 77
== END 2024-11-01 15:07 | disposition home or self-care (01) ==
LOC: CATHCVL 09:00
PROVIDERS: ATTEND Internal Medicine Interventional Cardiology
DX: R06.02 Shortness of breath (principal); I48.19 Other persistent atrial fibrillation; I10 Essential (primary) hypertension; E78.5 Hyperlipidemia, unspecified; M06.9 Rheumatoid arthritis, unspecified; J44.9 Chronic obstructive pulmonary disease, unspecified; F17.200 Nicotine dependence, unspecified, uncomplicated; Z79.82 Long term (current) use of aspirin; Z79.01 Long term (current) use of anticoagulants; Z79.899 Other long term (current) drug therapy
CPT/HCPCS: 93458; C1769; C1894; J2250; J1644 ×3; J2003; J3010; Q9967